=== PATIENT | male | born 1985 | race Caucasian/White ===

== ENCOUNTER 2020-08-25 09:18 | Emergency (ER) | payer OTHER, SELFPAY ==
[~2020-08-25] VITALS: Ht 170.2 cm; Wt 99.8 kg
[2020-08-25 09:22] VITALS: BP 155/91; Ht 170.2 cm; Wt 99.8 kg
== END 2020-08-25 10:39 | disposition home or self-care (01) ==
LOC: ED 09:18
DX: U07.1 COVID-19 (principal); B34.9 Viral infection, unspecified
CPT/HCPCS: U0003